=== PATIENT | male | born 1945 | race Caucasian/White ===

== ENCOUNTER 2016-11-25 09:08 | Day surgery (SDC) | payer MEDICARE, OTHER ==
[~2016-11-25 09:08] MED LIST: BUPIVACAINE HCL 0.75% INJ/PF (7.5 MG/1 ML) 10 ML SDV OS PRN; KETOROLAC TROMETHAMINE 0.45% 4 DROP/0.4 ML DROPERETTE OS PRN; LIDOCAINE 4% INJ/PF (40 MG/ML) 5 ML AMPUL OS PRN; MIDAZOLAM 2 MG/2 ML INJ ONE
[2016-11-25] MEDS ORDERED: LIDOCAINE 1% INJ-PF (10 MG/ML) 30 ML SDV ONE (10:03)
[2016-11-25] MEDS ORDERED: PHENYLEPHRINE/KETOROLAC 1%-0.3% 4 ML VIAL ONE (10:03)
[2016-11-25] MEDS ORDERED: CHONDR SU A NA/HYALUR INTRAOC KIT (SURGICARE) ONE (10:03)
[2016-11-25] MEDS: TROPICAMIDE 1% OPH SOLN 3 ML OS PRN ×3 (10:08→10:28)
[2016-11-25] MEDS: BESIFLOXACIN HCL 0.6% OPH SUSP 5 ML BOTTLE OS PRN ×3 (10:08→11:14)
[2016-11-25] MEDS: CYCLOPENTOLATE 0.2%/PHENYLEPHRINE 1% OPH SOLN 2 ML OS PRN ×3 (10:08→10:28)
[2016-11-25] MEDS: TETRACAINE HCL 0.5% OPH SOLN 0.6 ML DROPERETTE OS PRN ×2 (10:09→10:28)
--- NOTE | 2016-11-25 11:51 | [facility] OPERATIVE REPORT E ---
[facility] Operative Report NAME: WALTER DONIS AGE: 71Y DATE OF SURGERY: 11/25/2016 ROOM: PREOPERATIVE DIAGNOSIS: Cataract, left eye. POSTOPERATIVE DIAGNOSIS: Cataract, left eye. PROCEDURE PERFORMED: Phacoemulsification with posterior chamber intraocular lens, left eye. SURGEON: MARTINA CAMPOVERDE M.D. ANESTHESIA: Topical with MAC. INDICATIONS FOR SURGERY: Difficulty reading small print and glare with night driving. Best corrected visual acuity 20/40. DESCRIPTION OF PROCEDURE: The patient was brought to the operating room and placed on the operative table. Following tetracaine drops, topical anesthesia was administered. This consisted of instrument wipe pledgets soaked in a solution of 4% Xylocaine mixed with 0.75% Marcaine in a 1:2 ratio. A 2 x 1 cm pledget was placed in the superior fornix. A 1 x 1 cm pledget was placed in the inferior fornix. The eye was patched shut for 5 minutes. The patch was removed. The eye was sterilely prepped and draped in the usual manner. Lid speculum was placed in the eye. The pledgets were removed, 4-0 black silk sutures were placed around the superior and the inferior rectus muscles to be used as traction. A conjunctival peritomy was made at the 10 o'clock position. Hemostasis was obtained with bipolar cautery. A posterior limbal groove was created using a crescent knife and dissected anteriorly towards the cornea. A sharp point blade was used to create a paracentesis site at the 2 o'clock position. A 2.4 mm keratome was used to enter the anterior chamber through the groove. Viscoelastic was injected into the anterior chamber. An anterior capsulotomy was performed using Utrata forceps in a capsulorrhexis fashion. Hydrodissection and hydrodelineation were performed. Phacoemulsification was performed in [id number]-tfh-afabrsl technique. A total of 43 seconds of total phaco time was used. Following this, the I/A unit was used to remove residual cortex. Viscoelastic was injected into the capsular bag. Intraocular lens Model SN60WF, 18.5 diopters, serial number [id number] was placed in the capsular bag. The I/A unit was used to remove residual viscoelastic. The wound was seen to be watertight under high and low pressure, and no sutures were placed. The intraocular lens was well centered. The pressure was adjusted in the eye to normal pressure. The 4-0 black silk sutures and lid speculum were removed. The eye was shielded after Besivance drops were placed. The patient tolerated the procedure well and was sent to the recovery room in good condition. DICTATING PHYSICIAN: MARTINA CAMPOVERDE M.D. [id number] PHY#: [id number] ID: [id number] JOB#: [id number] ACCT: [id number] cc:MARTINA CAMPOVERDE M.D. >
--- NOTE | 2016-11-25 11:54 | [facility] DISCHARGE SUMMARY E ---
[facility] Discharge Summary NAME: WALTER DONIS AGE: 71Y ADMITTED: 11/25/2016 DISCHARGED: 11/25/2016 HOSPITAL COURSE: The patient is a 71-year-old gentleman who underwent uneventful cataract extraction with intraocular lens implant, left eye, on 11/25/2016. He will be discharged to home. He was instructed to resume preoperative medications, take Tylenol as needed for discomfort, to keep his eyes shielded, to use Durezol, Ilevro, and Besivance, at 3:00 p.m. and 8:00 p.m, and to follow up in my office in 1 day. DICTATING PHYSICIAN: MARTINA CAMPOVERDE M.D. [id number] PHY#: [id number] ID: [id number] JOB#: [id number] ACCT: [id number] cc:MARTINA CAMPOVERDE M.D. >
== END 2016-11-25 11:52 | disposition home or self-care (01) ==
LOC: SC 09:08
PROVIDERS: ATTEND Ophthalmology
PROC: 08RK3JZ Replacement of Left Lens with Synthetic Substitute, Percutaneous Approach (ICD-10-PCS; principal; 2016-11-25 10:30)
DX: H25.812 Combined forms of age-related cataract, left eye (principal); H57.03 Miosis; Z96.1 Presence of intraocular lens; E11.9 Type 2 diabetes mellitus without complications; D68.9 Coagulation defect, unspecified; E78.00 Pure hypercholesterolemia, unspecified; Z79.4 Long term (current) use of insulin; Z79.899 Other long term (current) drug therapy; Z79.01 Long term (current) use of anticoagulants; Z79.84 Long term (current) use of oral hypoglycemic drugs; Z86.718 Personal history of other venous thrombosis and embolism
CPT/HCPCS: 66984; 82962; V2632; J2250; J3490 ×4; A9270; C9447; 142

== ENCOUNTER 2017-02-10 07:19 | Day surgery (SDC) | payer MEDICARE, OTHER ==
--- NOTE | 2017-02-04 07:16 | HISTORY AND PHYSICAL E ---
History and Physical NAME: WALTER DONIS : 1945 AGE: 71Y ADMITTED: 02/10/2017 ROOM: CHIEF COMPLAINT: History of adenomatous sessile polyp, cecum. HISTORY: Patient presented at this time regarding colonoscopy. Patient was scoped on July 2016 where he did have sessile polyp in the cecum (adenoma). He has terminal make up operator history of . His father had colon cancer at age 71. SURGICAL HISTORY: 1. Appendectomy. 2. Cataract surgery. SOCIAL HISTORY: Does not drink. Smokes rarely (cigar). ALLERGIES: No known allergies. REVIEW OF SYSTEMS: ENDOCRINE: Diabetes. CARDIAC: Hypertension. GASTROINTESTINAL: Diverticulosis. Right colon polyp. His father had colon cancer. His mom had CA of the throat. MEDICATION: 1. Eliquis. 2. Metformin. 3. Crestor. PHYSICAL EXAMINATION: GENERAL: Pleasant, alert, oriented. In no acute distress. VITAL SIGNS: Blood pressure is 140/80, pulse 70, respirations 18, temperature is 98. HEAD, EYES, EARS, NOSE, THROAT: Normal. ABDOMEN: Soft. NEUROLOGIC EXAM: Negative. Patient has history of A.Fib. He takes blood thinner, Eliquis. Colon showing sessile polyp in the cecum. Patient plans colonoscopy. Patient did have some oozing and this was controlled by local thrombin. CONCLUSION: 1. SESSILE RIGHT COLON CECAL POLYP. 2. DIABETES. 3. ATRIAL FIBRILLATION. PLAN: Colon examination. Today is 02/01/2017; admit 02/10/2017. DICTATING PHYSICIAN: HEMAL FRANCIS M.D. [id number] PHY#: [id number] ID: [id number] JOB#: [id number] ACCT: [id number] cc:HEMAL FRANCIS M.D., ROBERT M.D. >
[2017-02-10] MEDS ORDERED: LIDOCAINE 2% JELLY 30 ML TUBE ONE (07:23)
[2017-02-10] MEDS ORDERED: ONDANSETRON HCL INJ/PF 4 MG/2 ML SDV ONE (07:23)
[2017-02-10] MEDS ORDERED: NALOXONE HCL INJ/PF 0.4 MG/1 ML SDV ONE (07:24)
[2017-02-10] MEDS ORDERED: GLYCOPYRROLATE INJ 0.4 MG/2 ML VIAL ONE (07:24)
[2017-02-10] MEDS ORDERED: GLUCAGON,HUMAN RECOMB 1 MG INJ ONE (07:25)
[2017-02-10] MEDS ORDERED: FLUMAZENIL INJ 0.5 MG/5 ML VIAL IV ONE (07:25)
[2017-02-10] MEDS ORDERED: EPINEPHRINE INJ 1 MG/10 ML DISP.SYRIN ONE (07:25)
[2017-02-10] MEDS: MIDAZOLAM 2 MG/2 ML INJ ONE ×2 (08:17→08:27)
[2017-02-10] MEDS: FENTANYL CITRATE INJ/PF 100 MCG/2 ML AMPUL ONE ×2 (08:19→08:30)
[2017-02-10 09:49] VITALS: BP 117/49
[2017-02-10 10:12] LABS: ABSOLUTE BASOPHILS # (AUTO) 0.1 10^3/uL (0.0-0.2); ABSOLUTE EOSINOPHILS # (AUTO) 0.3 10^3/uL (0.0-0.6); ABSOLUTE LYMPHOCYTES (AUTO) 1.2 10^3/uL (0.5-4.7); ABSOLUTE MONOCYTES (AUTO) 0.8 10^3/uL (0.1-1.4); ABSOLUTE NEUT (AUTO) 6.4 10^3/uL (1.7-8.2); BASOPHILS % (AUTO) 0.6 % (0-2); EOSINOPHILS % (AUTO) 3.6 % (0-6); HEMATOCRIT 42.8 % (37.9-51.0); HEMOGLOBIN 14.2 g/dL (13.5-17.0); HGB HCT DIFFERENCE -0.2; LYMPHOCYTES % (AUTO) 13.8 % (13-45); MEAN CORPUSCULAR HEMOGLOBIN 28.4 pg (27.0-33.4); MEAN CORPUSCULAR HGB CONC 33.2 g/dL (32.0-36.0); MEAN CORPUSCULAR VOLUME 86 fl (80-97); MONOCYTES % (AUTO) 9.3 % (3-13); RED BLOOD COUNT 5.01 10^6/uL (4.35-5.55); RED CELL DISTRIBUTION WIDTH 14.1 % (11.5-14.0); SEGMENTED NEUTROPHILS % (AUTO) 72.7 % (42-78); WHITE BLOOD COUNT 8.8 10^3/uL (4.0-10.5)
--- NOTE | 2017-02-10 10:44 | OPERATIVE REPORT E ---
Operative Report NAME: WALTER DONIS : 1945 AGE: 71Y DATE OF SURGERY: 02/10/2017 ROOM: PREOPERATIVE DIAGNOSES: 1. The patient is 71. 2. Preop colon screening. 3. History of adenoma polyp, cecum. POSTOPERATIVE DIAGNOSES: 1. Small 3 mm polyp, cecum. 2. Small 2 mm polyp, rectum. OPERATIONS: 1. Colonoscopy. 2. Biopsy, rectum and cecum. SURGEON: HEAML FRANCIS M.D. ANESTHESIA: TISSUE REMOVED OR ALTERED: Polyp, cecum, and injected with diluted epi and biopsy rectal polyp with injection of diluted epi. Again, the patient has 2 polyps: 1 cecum 3 mm, biopsied and small amount of oozing was controlled by diluted epi about 3 mL and the same in the rectum, 2 mm polyp, biopsy, and small amount of bleeding was controlled with 3 mL injection of diluted epi 2:1. FINDINGS: The patient has severe diverticulosis, multiple diverticulosis with large amount of fecal material. PROCEDURE: Rectum exam shows small 3 mm polyp, injected and controlled bleeding with epi injection. Sigmoid descending colon: Diverticulosis transverse colon, diverticulosis ascending colon, normal cecum shows 3 mm polyp. Scope withdrawn cecum, ascending, transverse, descending sigmoid all the way to the rectum. CONCLUSION: 1. Polyp, rectum. 2. Polyp, cecum. PLAN: 1. Hold Eliquis for today. 2. Awaiting biopsy results. 3. Consideration followup colonoscopy after 2 years pending biopsy results. 4. Will obtain baseline CEA and CBC. The patient tolerated the procedure well. Followup colonoscopy 2 years. DICTATING PHYSICIAN: HEMAL FRANCIS M.D. [id number] PHY#: [id number] ID: [id number] JOB#: [id number] ACCT: [id number] cc:Carla SMITH M.D. >
--- NOTE | 2017-02-10 10:45 | DISCHARGE SUMMARY E ---
Discharge Summary NAME: WALTER DONIS : 1945 AGE: 71Y ADMITTED: 02/10/2017 DISCHARGED: 02/10/2017 PROCEDURES: 1. Colonoscopy. 2. Biopsy. HISTORY: The patient is 71, presented for colon screening. History of polyp. The patient does have diabetes, hypertension, high cholesterol and atrial fibrillation. He is on Eliquis which was stopped prior colonoscopy. Today's colon shows no malignancy, large amount of diverticulosis sigmoid descending colon and transverse colon. He did have benign looking polyp rectum and cecum. DISCHARGE PLAN: 1. Soft low-residue diet for 3 days. 2. Awaiting biopsy results. 3. The patient to see us in the office in the next few days pending biopsies. 4. Baseline CBC and CEA. 5. Again discharged on full liquid today, soft low-residue diet for 3 days. 6. Hold Eliquis blood thinner today. DICTATING PHYSICIAN: HEMAL FRANCIS M.D. [id number] PHY#: [id number] ID: [id number] JOB#: [id number] ACCT: [id number] cc:Carla SMITH M.D. >
== END 2017-02-10 10:10 | disposition home or self-care (01) ==
LOC: END 07:19
PROVIDERS: ATTEND Specialist
PROC: 0DBP8ZX Excision of Rectum, Via Natural or Artificial Opening Endoscopic, Diagnostic (ICD-10-PCS; 2017-02-10)
PROC: 3E0H8GC Introduction of Other Therapeutic Substance into Lower GI, Via Natural or Artificial Opening Endoscopic (ICD-10-PCS; principal; 2017-02-10 08:00)
PROC: 0DBH8ZX Excision of Cecum, Via Natural or Artificial Opening Endoscopic, Diagnostic (ICD-10-PCS; 2017-02-10 08:00)
DX: K63.5 Polyp of colon (principal); D12.0 Benign neoplasm of cecum; R97.0 Elevated carcinoembryonic antigen [CEA]; I48.91 Unspecified atrial fibrillation; I10 Essential (primary) hypertension; E11.9 Type 2 diabetes mellitus without complications; Z79.84 Long term (current) use of oral hypoglycemic drugs; Z79.01 Long term (current) use of anticoagulants; Z79.899 Other long term (current) drug therapy
CPT/HCPCS: 45380; 45381; 36415; 82962; 82378; 84132; 85025; 88305 ×2; J2250; J0171; J3010; J1610; J2310; J2405; J3490

== ENCOUNTER 2018-05-24 10:43 | Emergency (ER) | payer MEDICARE, OTHER ==
--- NOTE | 2018-05-24 11:22 | ER Document Report ---
ED Medical Screen (RME) - General Chief Complaint: Near Syncope Stated Complaint: DIZZINESS, POSSIBLE SYNCOPE Time Seen by Provider: 05/24/18 11:19 Notes: 72 years old male with a history of ringing sensation in the ER, for the last few months having on and off. Of extreme dizziness spinning sensation to the point that he is unable to even get up and walk for many hours before it subsided. Therefore present to the ED. He has progressively increasing number of episodes and prolongation of the dizziness. Denies any palpitation or diaphoresis. Denies any chest pain. Denies any focal weakness numbness tingling sensation. Examination is benign- TRAVEL OUTSIDE OF THE [place] IN LAST 30 DAYS: No - Related Data Allergies/Adverse Reactions: propranolol [From Inderal [place]] Allergy (Verified 02/10/17 07:32) Shortness of Breath Past Medical History - Past Medical History Cardiac Medical History: Reports: Hx Hypertension Denies: Hx Coronary Artery Disease - HIGH CHOLESTEROL, Hx Heart Attack - borderline heart attack in 1993 Pulmonary Medical History: Reports: Hx Pneumonia - AGE 16 Denies: Hx Asthma, Hx Bronchitis, Hx COPD Neurological Medical History: Denies: Hx Cerebrovascular Accident, Hx Seizures GI Medical History: Reports: Hx Ulcer - YRS AGO. Denies: Hx Hepatitis, Hx Hiatal Hernia Musculoskeltal Medical History: Denies Hx Arthritis Infectious Medical History: Denies: Hx Hepatitis Past Surgical History: Denies: Hx Open Heart Surgery, Hx Pacemaker - Immunizations Hx Diphtheria, Pertussis, Tetanus Vaccination: No Physical Exam - Vital signs Vitals: Temp Pulse Resp BP Pulse Ox 97.5 F 67 16 111/54 L 99 05/24/18 10:55 05/24/18 10:55 05/24/18 10:55 05/24/18 10:55 05/24/18 10:55 Course - Vital Signs Vital signs: Temp Pulse Resp BP Pulse Ox 97.5 F 67 16 111/54 L 99 05/24/18 10:55 05/24/18 10:55 05/24/18 10:55 05/24/18 10:55 05/24/18 10:55 Doctor's Discharge - Discharge Referrals: WALTER HAMEED MD [Primary Care Provider] - Follow up as needed
--- NOTE | 2018-05-24 11:44 | EKG REPORT ---
SEVERITY:- ABNORMAL ECG - SINUS RHYTHM RIGHT AXIS DEVIATION NONSPECIFIC T ABNORMALITIES, LATERAL LEADS : Confirmed by: Suma Emerson MD 24-May-2018 11:43:58
[2018-05-24 12:00] LABS: APPEARANCE,URINE CLEAR; BILIRUBIN,URINE NEGATIVE (NEGATIVE); COLOR,URINE YELLOW; GLUCOSE, URINE >=500 mg/dL (NEGATIVE); KETONES,URINE NEGATIVE (NEGATIVE); LEUKOCYTE ESTERASE,URINE NEGATIVE (NEGATIVE); NITRITE,URINE NEGATIVE (NEGATIVE); PROTEIN,URINE NEGATIVE (NEGATIVE); URINE SPECIFIC GRAVITY 1.027; UROBILINOGEN,URINE NEGATIVE mg/dL (<2.0)
[2018-05-24 12:03] LABS: ABSOLUTE BASOPHILS # (AUTO) 0.1 10^3/uL (0.0-0.2); ABSOLUTE EOSINOPHILS # (AUTO) 0.3 10^3/uL (0.0-0.6); ABSOLUTE LYMPHOCYTES (AUTO) 1.5 10^3/uL (0.5-4.7); ABSOLUTE MONOCYTES (AUTO) 0.9 10^3/uL (0.1-1.4); ABSOLUTE NEUT (AUTO) 8.2 10^3/uL (1.7-8.2); BASOPHILS % (AUTO) 0.8 % (0-2); EOSINOPHILS % (AUTO) 2.7 % (0-6); HEMATOCRIT 45.1 % (37.9-51.0); HEMOGLOBIN 15.7 g/dL (13.5-17.0); LYMPHOCYTES % (AUTO) 13.7 % (13-45); MEAN CORPUSCULAR HEMOGLOBIN 28.8 pg (27.0-33.4); MEAN CORPUSCULAR HGB CONC 34.7 g/dL (32.0-36.0); MEAN CORPUSCULAR VOLUME 83 fl (80-97); PLATELET COUNT 241 10^3/uL (150-450); RED BLOOD COUNT 5.43 10^6/uL (4.35-5.55); RED CELL DISTRIBUTION WIDTH 14.8 % (11.5-14.0); SEGMENTED NEUTROPHILS % (AUTO) 74.8 % (42-78); TOTAL CELLS COUNTED % (AUTO) 100 %
--- NOTE | 2018-05-24 12:16 | RADIOLOGY REPORT (SQ) ---
EXAM DESCRIPTION: CT HEAD WITHOUT COMPLETED DATE/TIME: 05/24/2018 11:57 am REASON FOR STUDY: Dizziness COMPARISON: None. TECHNIQUE: Axial images acquired through the brain without intravenous contrast. Images reviewed wi th bone, brain and subdural windows. Additional sagittal and coronal reconstructions were generated. Images stored on PACS. All CT scanners at this facility use dose modulation, iterative reconstruction, and/or weight based d osing when appropriate to reduce radiation dose to as low as reasonably achievable (ALARA). [facility]: Dose Right [facility]: CareDose [facility]: Dose Right [facility]: Teradose 4D [facility]: [employer] RADIATION DOSE: CT Rad equipment meets quality standard of care and radiation dose reduction techniq ues were employed. CTDIvol: 53.2 mGy. DLP: 991 mGy-cm. LIMITATIONS: None. FINDINGS: VENTRICLES: The ventricles are mildly prominent commensurate with the sulci. The cistern s are patent. CEREBRUM: Chronic slight small vessel ischemic changes. No masses. No hemorrhage. No midline shif t. No evidence for acute infarction. CEREBELLUM: No masses. No hemorrhage. No alteration of density. No evidence for acute infarction. EXTRAAXIAL SPACES: Age related involutional change. No fluid collections. No masses. ORBITS AND GLOBE: No intra- or extraconal masses. Normal contour of globe without masses. CALVARIUM: No fracture. PARANASAL SINUSES: A 2.2 cm mucous retention cyst or polyp in the left maxillary sinus. Slight muco marcelino thickening right maxillary sinus. SOFT TISSUES: No mass or hematoma. OTHER: Atherosclerotic changes involving the cavernous portion of the internal carotid arteries and intracranial portion of the left vertebral artery. Cerumen in the bilateral external auditory canals . IMPRESSION: 1. No acute intracranial abnormality. 2. Atrophy and chronic slight small vessel ischemic changes. 3. Left maxillary sinus mucous retention cyst or polyp and slight right maxillary chronic sinus dise ase. EVIDENCE OF ACUTE STROKE: NO COMMENT: Quality ID # [id number]: Final reports with documentation of one or more dose reduction techniques (e.g., Automated exposure control, adjustment of the mA and/or kV according to patient size, use of iterative reconstruction technique) TECHNICAL DOCUMENTATION: JOB ID: [id number] [employer]- All Rights Reserved Reading location - IP/workstation name: [email or web address]
[2018-05-24 12:21] LABS: BLOOD UREA NITROGEN 27 mg/dL (7-20); CALCIUM 9.3 mg/dL (8.4-10.2); GLUCOSE 251 mg/dL (75-110)
[2018-05-24 12:22] LABS: ALANINE AMINOTRANSFERASE 31 U/L (21-72); ALBUMIN 4.4 g/dL (3.5-5.0); ALKALINE PHOSPHATASE 92 U/L (38-126); ANION GAP 8 (5-19); ASPARTATE AMINO TRANSFERASE 45 U/L (17-59); BILIRUBIN,DIRECT 0.5 mg/dL (0.0-0.4); BILIRUBIN,TOTAL 0.9 mg/dL (0.2-1.3); CARBON DIOXIDE 26 mmol/L (22-30); CHLORIDE 102 mmol/L (98-107); CREATINE KINASE 426 U/L (55-170); SODIUM 135.9 mmol/L (137-145)
[2018-05-24 12:35] LABS: CREATINE KINASE MB 4.38 ng/mL (<4.55); TROPONIN I < 0.012 ng/mL
[2018-05-24] MEDS ORDERED: NORMAL SALINE 1000 ML 1,000 ML IV ONE (13:33)
--- NOTE | 2018-05-24 14:22 | ER Document Report ---
ED General - General Chief Complaint: Near Syncope Stated Complaint: DIZZINESS, POSSIBLE SYNCOPE Time Seen by Provider: 05/24/18 11:19 TRAVEL OUTSIDE OF THE [place] IN LAST 30 DAYS: No - HPI Patient complains to provider of: Dizziness near syncope Notes: Patient coming in for the above-stated symptoms. Patient states symptoms ongoing for a month intermittently. Patient states mostly occurs with the patient's been up on his feet for prolonged periods of times walking or standing still. Patient states less frequent whenever he is changing positions. Patient states he has had power and JAZMIN within his home drinking plenty of water. Patient denies any fever chills nausea vomiting diarrhea denies any chest pain abdominal pain or head pain. Denies any head trauma. - Related Data Allergies/Adverse Reactions: propranolol [From Inderal [place]] Allergy (Verified 02/10/17 07:32) Shortness of Breath Past Medical History - Social History Smoking Status: Former Smoker Family History: Reviewed & Not Pertinent Patient has suicidal ideation: No Patient has homicidal ideation: No - Past Medical History Cardiac Medical History: Reports: Hx Hypercholesterolemia, Hx Hypertension Denies: Hx Coronary Artery Disease - HIGH CHOLESTEROL, Hx Heart Attack - borderline heart attack in 1993 Pulmonary Medical History: Reports: Hx Pneumonia - AGE 16 Denies: Hx Asthma, Hx Bronchitis, Hx COPD Neurological Medical History: Denies: Hx Cerebrovascular Accident, Hx Seizures Endocrine Medical History: Reports: Hx Diabetes Mellitus Type 2 Renal/ Medical History: Denies: Hx Peritoneal Dialysis GI Medical History: Reports: Hx Ulcer - YRS AGO. Denies: Hx Hepatitis, Hx Hiatal Hernia Musculoskeletal Medical History: Denies Hx Arthritis Infectious Medical History: Denies: Hx Hepatitis Past Surgical History: Reports: Hx Abdominal Surgery - Rectal polyps, Hx Appendectomy, Hx Cardiac Catheterization, Hx Tonsillectomy. Denies: Hx Open Heart Surgery, Hx Pacemaker - Immunizations Hx Diphtheria, Pertussis, Tetanus Vaccination: No Hx Pneumococcal Vaccination: 09/05/14 Review of Systems - Review of Systems Constitutional: Weakness - Dizziness EENT: No symptoms reported Cardiovascular: No symptoms reported Respiratory: No symptoms reported Gastrointestinal: No symptoms reported Genitourinary: No symptoms reported Male Genitourinary: No symptoms reported Musculoskeletal: No symptoms reported Skin: No symptoms reported Hematologic/Lymphatic: No symptoms reported Neurological/Psychological: No symptoms reported -: Yes All other systems reviewed and negative Physical Exam - Vital signs Vitals: Temp Pulse Resp BP Pulse Ox 97.5 F 67 16 111/54 L 99 05/24/18 10:55 05/24/18 10:55 05/24/18 10:55 05/24/18 10:55 05/24/18 10:55 Interpretation: Normal - General General appearance: Appears well, Alert - HEENT Head: Normocephalic, Atraumatic Eyes: Normal Pupils: PERRL - Respiratory Respiratory status: No respiratory distress Chest status: Nontender Breath sounds: Normal Chest palpation: Normal - Cardiovascular Rhythm: Regular Heart sounds: Normal auscultation Murmur: No - Abdominal Inspection: Normal Distension: No distension Bowel sounds: Normal Tenderness: Nontender Organomegaly: No organomegaly - Back Back: Normal, Nontender - Extremities General upper extremity: Normal inspection, Nontender, Normal color, Normal ROM , Normal temperature General lower extremity: Normal inspection, Nontender, Normal color, Normal ROM , Normal temperature, Normal weight bearing. No: Nathalie's sign - Neurological Neuro grossly intact: Yes Cognition: Normal Orientation: AAOx4 Francois Coma Scale Eye Opening: Spontaneous Francois Coma Scale Verbal: Oriented Francois Coma Scale Motor: Obeys Commands [place] Coma Scale Total: 15 Speech: Normal Motor strength normal: LUE, RUE, LLE, RLE Sensory: Normal - Psychological Associated symptoms: Normal affect, Normal mood - Skin Skin Temperature: Warm Skin Moisture: Dry Skin Color: Normal Course - Re-evaluation Re-evalutation: 05/24/18 18:36 Symptoms occurring with standing possibly due to low venous return. Recommend patient be given on started on compression stockings. Patient otherwise astigmatic able to ambulate to the bathroom here without any difficulty patient was discharged home follow-up primary care physician. - Vital Signs Vital signs: Temp Pulse Resp BP Pulse Ox 97.8 F 50 L 16 110/57 L 97 05/24/18 15:17 05/24/18 15:17 05/24/18 10:55 05/24/18 15:17 05/24/18 15:17 - Laboratory Result Diagrams: 05/24/18 11:36 05/24/18 11:36 Laboratory results interpreted by me: 05/24/18 05/24/18 05/24/18 11:36 11:36 11:36 WBC 11.0 H RDW 14.8 H Sodium 135.9 L BUN 27 H Creatinine 1.50 H Est GFR ( Amer) 56 L Est GFR (Non-Af Amer) 46 L Glucose 251 H Direct Bilirubin 0.5 H Creatine Kinase 426 H Urine Glucose (UA) >=500 H Discharge - Discharge Clinical Impression: Orthostatic dizziness Condition: Good Disposition: HOME, SELF-CARE Instructions: Dizziness (OM) Additional Instructions: Laboratory studies today do show signs of slight dehydration. I do believe that another cause of her dizziness is more likely due to orthostasis or blood pooling in your legs causing decreased blood flow to her brain causing dizziness and causing the symptoms where he almost passed out. Will recommend trying the compression stockings while out and about ambulating. Would highly recommend following up with your primary care physician for further evaluation. Return to ER for any other symptoms. Prescriptions: Compress.stocking,Knee,Reg,Lrg [Relief Knee Open Toe] 1 each MC DAILY #1 each Referrals: WALTER HAMEED MD [Primary Care Provider] - Follow up in 1 week
[2018-05-24 15:22] VITALS: BP 110/57
== END 2018-05-24 15:24 | disposition home or self-care (01) ==
LOC: ER 10:43
DX: I95.1 Orthostatic hypotension (principal); Z87.891 Personal history of nicotine dependence
CPT/HCPCS: 36415; 70450; 80053; 81001; 82550; 82553; 84484; 85025; 93005; 93010; 96360; 99284